=== PATIENT | female | born 1985 | race Caucasian/White ===

== ENCOUNTER 2022-07-03 17:51 | Emergency (ER) | payer OTHER, MEDICAID, SELFPAY ==
[2022-07-03 18:11] VITALS: BP 121/77; PULSE 82; RESP 18; TEMP 36.9; O2SAT 99; BMI 26.6
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
== END 2022-07-03 20:12 | disposition home or self-care (01) ==
LOC: ED 19:35
PROVIDERS: Emergency Provider Family Medicine; PCP Family Medicine
DX: M54.50 Low back pain, unspecified (principal); V43.02XA Car driver injured in collision with other type car in nontraffic accident, initial encounter
CPT/HCPCS: 99282; 99283; 99284

== ENCOUNTER 2023-02-18 09:17 | Emergency (ER) | payer MEDICAID, SELFPAY ==
[2023-02-18 09:33] VITALS: BP 122/72; PULSE 86; RESP 16; TEMP 36.4; O2SAT 98; BMI 26.4
--- NOTE | 2023-02-18 09:48 | ED_ITS ---
HPI - Abdominal Pain General Time Seen by Provider: 09:48 Date Seen: 02/18/23 Chief Complaint: Abdominal Pain Stated Complaint: pelvis pain 9weeks Time Seen by Provider: 02/18/23 09:48 Source: patient, RN notes reviewed and old records reviewed Mode of arrival: ambulatory Limitations: no limitations History of Present Illness HPI narrative: Patient is a very pleasant 37-year-old female at approximately 9 weeks based on an LMP of December 07 who comes to the emergency room for evaluation of pelvic pain. Patient notes that she started experiencing discomfort in which she describes as ovary pain over the weekend or the past 48 hours. She notes today she went to work at [employer] and had increased pain while she was vacuuming a large room and lifting the vacuum up stairs. In addition she had open a very heavy door and was worried about the increasing pain. She states now the pain is also in her groin area. She has not had any v omiting fever or chills. She denies dysuria. She has not had any unusual vaginal discharge or bleeding. He is worried about the health of her baby as she has had no complications with her previous 2 pregnancies. She notes that movement such as lifting her legs definitely increases her discomfort and resting seems to help. She has not taken any medication for pain at this time. I do speak to her about bacterial vaginosis and she said that she has had that in the past. She notes no unusual odor today and again denies any unusual vaginal discharge. Activity on Saturday prior to the onset of symptoms included 3-1/2-4 hours of walking during good Saturday services which reacted stations of the [place]. She states that she is usually quite active in this would not normally bother her. Related Data Home Medications Medication Instructions Recorded Confirmed levothyroxine 125 mcg capsule 125 mcg PO QDAY 05/10/22 05/10/22 Previous Rx's Medication Instructions Recorded cyclobenzaprine 10 mg tablet 5 - 10 mg PO Q12H #20 tabs 07/03/22 hydrocodone 5 mg-acetaminophen 325 1 tab PO Q6H PRN pain #15 tabs 07/03/22 mg tablet Allergies Allergy/AdvReac Type Severity Reaction Status Date / Time naproxen Allergy Severe hives, SOB Verified 06/07/22 12:33 Penicillins Allergy Intermediate Nausea Verified 06/07/22 12:33 clarithromycin Allergy Mild Rash Verified 06/07/22 12:33 metronidazole Allergy Mild Rash Verified 06/07/22 12:33 aspirin Allergy Unknown Verified 06/07/22 12:33 ibuprofen Allergy Unknown intolerance Verified 06/07/22 12:33 oxycodone-acetaminophen Allergy Intermediate Dizziness Uncoded 06/07/22 12:33 Review of Systems Status of ROS Reports: 10 or more systems reviewed and unremarkable except as noted in History and below Const Denies: fever, chills or fatigue ENMT Denies: throat pain, neck pain or difficulty swallowing Cardio Denies: chest pain, swelling of feet/ankles, lightheadedness or shortness of breath with exertion Resp Denies: shortness of breath or cough GI Reports: abdominal pain (Pelvic and groin); Denies: nausea, vomiting, diarrhea or difficulty swallowing Denies: painful urination, urinary frequency or urinary urgency Musculo Denies: back pain or neck pain Neuro Denies: headache Endo Denies: fatigue PFSH PFS Medical History Injury of left heel ?S99.922A - Unspecified injury of left foot, initial encounter (ICD-10) Social History Smoking Status: Unknown if ever smoked Do you use any of these nicotine containing products: None How often do you have a drink containing alcohol: monthly or less How often do you have six or more drinks on one occasion: Never AUDIT-C Alcohol total score: 1 Non-prescribed substance use: denies use service: No Exam Narrative: Exam Narrative: Patient is alert and oriented. Nontoxic in appearance. Clearly worried. External ears eyes nose clear no respiratory distress. Abdomen is soft. Tenderness noted in the lower pelvic area. No masses palpated. External genitalia within normal limits. No erythema. There is some whitish discharge that is not malodorous. Small collection taken. No cervical motion tenderness with bimanual exam. No masses are palpated. No lesions are noted. Const: Vital Signs, click to edit/add: Vital Signs - 24 hr 02/18/23 09:33 Temperature 97.6 F Pulse Rate [Left P ulse Oximeter] 86 Respiratory Rate 16 Blood Pressure [Le ft Upper Arm] 122/72 Pulse Oximetry 98 Oxygen Delivery Me thod Room Air Documenting provider has reviewed patient's vital signs: yes Course Course Hospital Course: At this time will obtain urinalysis as well as pelvic ultrasound. Prep pending Reevaluation(s) Reevaluation #1: Wet prep is negative. Did call patient and left this message on her phone as she had departed prior to these results being available. Ultrasound reassuring with no evidence of subchorionic hemorrhage or abnormality. Vital Signs Vital signs: Initial Vital Signs Temperature 97.6 F 02/18/23 09:33 Temperature Source Temporal Artery Scan 02/18/23 09:33 Pulse Rate 86 02/18/23 09:33 Pulse Rhythm Regular 02/18/23 09:33 Pulse Strength 3+ Normal 02/18/23 09:33 Respiratory Rate 16 02/18/23 09:33 Blood Pressure 122/72 02/18/23 09:33 Blood Pressure Mean 88 02/18/23 09:33 Blood Pressure Position Sitting 02/18/23 09:33 Pulse Oximetry 98 02/18/23 09:33 Oxygen Delivery Method Room Air 02/18/23 09:33 Vital Signs Temperature 97.6 F 02/18/23 09:33 Pulse Rate 86 02/18/23 09:33 Respiratory Rate 16 02/18/23 09:33 Blood Pressure 122/72 02/18/23 09:33 Pulse Oximetry 98 02/18/23 09:33 Oxygen Delivery Method Room Air 02/18/23 09:33 Temperature 97.6 F 02/18/23 09:33 Pulse Rate 86 02/18/23 09:33 Respiratory Rate 16 02/18/23 09:33 Blood Pressure 122/72 02/18/23 09:33 Pulse Oximetry 98 02/18/23 09:33 Oxygen Delivery Method Room Air 02/18/23 09:33 MDM - Abdominal Pain MDM Narrative Medical decision making narrative: 1. Pelvic pain-at this time ultrasound is reassuring with good heart tones and no evidence of subchorionic hemorrhage. No evidence of ovarian torsion. I believe that this discomfort likely stems from prolonged standing and walking on Saturday prior to the onset of symptoms. Patient is a little bit early for ligamental pain but certainly this could be part of her discomfort as well. He is nontoxic in appearance without a fever, urinary tract infection or worrisome exam. At this time recommend Tylenol as needed for discomfort. Will give her a note for 1 week off of work. She is to follow up with and establish with Dr. Tolentino from the [facility] for her OB care 1 week from today. Further review work restrictions can be given through primary MD. 2. Disposition-patient states she does feel better knowing that the baby is okay at this point. Recommend return to the ED for worsening or onset of new symptoms. She does agree. I did not feel the need for any blood work today given her vital signs, lack of fever, examination. Medical Records Attestation: I reviewed the patient's medical records. Lab Data Attestation: I reviewed the patient's lab results. Labs: Lab Results 02/18/23 02/18/23 Range/Units 10:19 14:40 Urine Color Yellow (Yellow) Urine Appearance Clear (Clear) Urine pH 6.5 (5.0-8.5) Ur Specific [place] 1.010 (1.000-1.030) Urine Protein Negative (Negative) Urine Glucose (UA) Negative (Negative) Urine Ketones Negative (Negative) Urine Blood Negative (Negative) Urine Nitrite Negative (Negative) Urine Bilirubin Negative (Negative) Urine Urobilinogen 0.2 (0.2-1.0) Ur Leukocyte Esterase Negative (Negative) Urine RBC 0-2 (0-2) Urine WBC 0-2 (0-5) Ur Squamous Epith Cells None (None-Few) Urine Bacteria None (None) Vaginal Trichomonas No Trichomonas Seen (None Seen) Vaginal Yeast No Yeast Seen (None Seen) Vaginal Clue Cells No Clue Cells Seen (None Seen) Imaging Data Pelvic ultrasound: Attestation: I have reviewed the pertinent imaging results. Radiologist's impression: here is a single living intrauterine . The crown rump length measurement is 3.4 centimeters which corresponds to 10 weeks and 4 days. The estimated date of delivery by ultrasound is 09/14/2023. The LMP is given as 12/07/2022 which corresponds to 10 weeks and 3 days with a clinically estimated date of delivery of 09/13/2023. The dates are concordant with one another A gestational sac is noted measuring 4.6 centimeters with smooth normal appearing margins. No subchorionic hemorrhage. A normal-appearing yolk sac is identified. The ovaries are normal in size. The right measures 3.3 x 2.6 x 2.5 centimeters and the left 3.0 x 1.7 x 1.4 centimeters. A corpus luteum cyst of is noted in the right ovary. No free fluid in the cul-de-sac. heart rate is 163 beats per minute which is normal Impression: Single live intrauterine at 10 weeks and 2 days with a normal heart rate of 163 beats per minute. No subchorionic hemorrhage. Unremarkable examination. Discharge Plan Discharge Clinical Impression: Pelvic pain Patient Disposition: Home, Self-Care Condition: Improved Additional Instructions: Suggest the use of Tylenol 500 mg tablets, 1-2 tablets every 6 hours as needed for pain. Rest. Follow-up with your primary doctor as scheduled next Saturday. In the meantime I have written work restrictions for now. Return to the emergency room for the onset of new or worsening symptoms. Prescriptions: No Action levothyroxine 125 mcg capsule 125 mcg PO QDAY hydrocodone-acetaminophen 5-325 mg tablet 1 tab PO Q6H PRN (Reason: pain) Qty: 15 0RF cyclobenzaprine 10 mg tablet 5 - 10 mg PO Q12H Qty: 20 0RF Follow Up/Referrals: Nataly Carrington MD [Primary Care Provider] - Stand Alone Forms: [employer] Info Instructions
--- NOTE | 2023-02-18 10:12 | CRLHL7_ITS ---
For Patients: As a result of the Century Cures Act, medical imaging exams and procedure reports are released immediately into your electronic medical record. You may view this report before your referring provider. If you have questions, please contact your health care provider. Indication: Pelvic and groin pain in the setting a first-trimester . Technique: Transvaginal examination of the pelvis was performed. The study was performed by grayscale and with Doppler. Comparison: None Findings: There is a single living intrauterine . The crown rump length measurement is 3.4 centimeters which corresponds to 10 weeks and 4 days. The estimated date of delivery by ultrasound is 09/14/2023. The LMP is given as 12/07/2022 which corresponds to 10 weeks and 3 days with a clinically estimated date of delivery of 09/13/2023. The dates are concordant with one another A gestational sac is noted measuring 4.6 centimeters with smooth normal appearing margins. No subchorionic hemorrhage. A normal-appearing yolk sac is identified. The ovaries are normal in size. The right measures 3.3 x 2.6 x 2.5 centimeters and the left 3.0 x 1.7 x 1.4 centimeters. A corpus luteum cyst of is noted in the right ovary. No free fluid in the cul-de-sac. heart rate is 163 beats per minute which is normal Impression: Single live intrauterine at 10 weeks and 2 days with a normal heart rate of 163 beats per minute. No subchorionic hemorrhage. Unremarkable examination. Dictated by Denny Ramirez MD @ 02/18/2023 1:02:41 PM (Electronically Signed)
[2023-02-18 10:34] LABS: Appearance Urine Clear (Clear); Bilirubin Urine Negative (Negative); Blood Urine Negative (Negative); Color Urine Yellow (Yellow); Glucose Urine Negative (Negative); Ketones Urine Negative (Negative); Leukocyte Esterase Urine Negative (Negative); Nitrite Urine Negative (Negative); Protein Urine Negative (Negative); Urobilinogen Urine 0.2 (0.2-1.0); pH Urine 6.5 (5.0-8.5)
[2023-02-18 10:41] LABS: RBC Urine 0-2 (0-2); WBC Urine 0-2 (0-5)
[2023-02-18 15:12] LABS: Clue Cells No Clue Cells Seen (None Seen); Trichomonas No Trichomonas Seen (None Seen); Yeast No Yeast Seen (None Seen)
== END 2023-02-18 15:26 | disposition home or self-care (01) ==
PROVIDERS: Emergency Provider Family Medicine; PCP Family Medicine
DX: R10.2 Pelvic and perineal pain (principal); Z3A.09 9 weeks gestation of pregnancy
CPT/HCPCS: 76817; 81001; 87210; 93976; 99284

== ENCOUNTER 2023-07-29 13:00 | Outpatient (RCR) | payer BC, SELFPAY | END 2023-10-23 13:40 | disposition home or self-care (01) | PROVIDERS: PCP Family Medicine; Visit Provider Family Medicine | DX: M54.42 Lumbago with sciatica, left side (principal); M54.16 Radiculopathy, lumbar region; M62.81 Muscle weakness (generalized); Z74.09 Other reduced mobility; Z51.89 Encounter for other specified aftercare | CPT/HCPCS: 97110; 97140; 97161; 97535 ==

== ENCOUNTER 2023-08-23 16:43 | Inpatient (IN) | payer BC, SELFPAY ==
[2023-08-23] VITALS (53 sets, daily range): BP systolic 106–162; BP diastolic 58–95; PULSE 74–118; RESP 18; TEMP 36.7–36.9; O2SAT 100; BMI 28.3
[2023-08-23] MEDS: LACTATED RINGERS 1000 ML 1,000 ML 999 ML IV ×2 (17:00→17:50)
[2023-08-23 17:01] LABS: Basophils Percent Auto 0.3 % (0.0-3.0); Eosinophils Percent Auto 0.4 % (0.0-7.0); Hematocrit 38.8 % (33.0-51.0); Hemoglobin* 13.2 gm/dL (12.0-16.0); Immature Granulocytes Pct Auto 0.9 %; Lymphocytes Percent Auto 21.8 % (20-44); Mean Corpuscular HGB Conc 34 gm/dL (32-36); Mean Corpuscular Hemoglobin 30 pg (26-34); Mean Corpuscular Volume 89 fL (80-100); Monocytes Percent Auto 7.1 % (0.0-11.0); Neutrophils Percent Auto 69.5 % (42.0-72.0); Platelet Count* 213 K/uL (140-440); RDW Coefficient of Variation % 14.3 % (11.5-15.5); Red Blood Count 4.35 m/uL (4.00-5.20); White Blood Count* 11.77 K/uL (4.50-11.00)
[2023-08-23 17:05] LABS: Slide Review Reflex No
--- NOTE | 2023-08-23 17:21 | PM.OBHPLI ---
OB - H&P: HPI Labor/Induction History of Present Illness Date Seen: 08/23/23 Chief Complaint: The patient is a 37 year old 5 para 1122 at 37 weeks gestation by LMP , who presents with painful regular contractions, starting at 1100, becoming stronger this afternoon. Chief complaint: Maternity : 5 Para: 2 Narrative: Kim De Leon is a 37 year old at 27 weeks by LMP who presents with painful regular contractions. This has been uncomplicated, however her first was an induction at 38 weeks for preeclampsia and resulted in a for non reassuring FHTs. She was planning on repeat csection for #2, but came in in labor with rapid dilation to 10 cm with successful . She desires TOLAC for this and consent has been signed. 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, cannot tolerate ASA Labs Blood type: O (+) positive Rubella: immune RPR/VDLR: nonreactive GBS status: negative HBsAG: negative Review of Systems Status of ROS: Reports: 6 or more systems reviewed and unremarkable except as noted in History and below Meds Home Medications and Allergies Home Medications Medication Instructions Recorded Confirmed Type levothyroxine 125 mcg capsule 125 mcg PO QDAY 05/10/22 08/23/23 History cholecalciferol (vitamin D3) 125 mcg PO 07/30/23 07/30/23 History mcg (5,000 unit) disintegrating tablet omeprazole 20 mg capsule,delayed 20 mg PO DAILY 07/30/23 08/23/23 History release Allergies Allergy/AdvReac Type Severity Reaction Status Date / Time ibuprofen Allergy Severe Only One Verified 07/30/23 14:23 Kidney naproxen Allergy Severe hives, SOB Verified 07/30/23 14:23 Penicillins Allergy Intermediate Nausea Verified 07/30/23 14:23 clarithromycin Allergy Mild Rash Verified 07/30/23 14:23 metronidazole Allergy Mild Rash Verified 07/30/23 14:23 aspirin AdvReac Severe Only One Verified 07/30/23 14:23 Kidney ketorolac [From Acular] AdvReac Severe Only One Verified 07/30/23 14:23 Kidney OB - H&P: Exam Physical Exam: Vital signs: Pulse BP 83 150/79 H 08/23/23 16:56 08/23/23 16:56 Constitutional: Constitutional: no acute distress Routine HEENT Exam: Head: Present atraumatic Eye: Present conjunctival injection and EOMI ENT: Present mucous membranes moist Detailed ENT Exam: Oropharynx: Present normal inspection Routine Neck Exam: Neck: Present full ROM Routine Respiratory Exam: Respiratory: Present CTA bilaterally Routine Cardiovascular Exam: Cardiovascular: RRR Detailed Labor and Delivery Exam: Patient Gravid: Yes Dilation (cm): 6 Contraction intensity: Strong/Firm Fetus (Single): Amniotic Membrane Status: intact Heart Rate Baseline: 140 Monitor Accelerations: Present Monitor Decelerations: None Routine Skin Exam: Present intact Routine Neurological Exam: Present alert, oriented X3 and CN II-XII intact OB - Results Labs Labs: Short CBC 08/23/23 Range/Units 16:50 WBC 11.77 H (4.50-11.00) K/uL Hgb 13.2 (12.0-16.0) gm/dL Hct 38.8 (33.0-51.0) % Plt Count 213 (140-440) K/uL OB - Problem Based A/P Additional Plan (1) Term : Status: Acute (2) History of : Status: Acute Plan Expectant management. OR and policewoman notified and are in house for TOLAC Epidural for pain management. Anticipate . Delivery/Labor/Induction Plan Plan: expectant management
[2023-08-23] MEDS: ROPIVACAINE 0.2% 100 ml 100 ML 12 MG EPIDURAL (17:36)
[2023-08-23] MEDS: LIDOCAINE 2% (PF) 5 ML VIAL EPIDURAL (17:36)
--- NOTE | 2023-08-23 17:54 | P.ANBPRC_ITS ---
[facility] Medical History History of vitamin D deficiency ?Z86.39 - Personal history of other endocrine, nutritional and metabolic disease (ICD-10) History of Helicobacter pylori infection (2017) ?Z86.19 - Personal history of other infectious and parasitic diseases (ICD- 10) Vaginal after (06/21/21) ?O34.219 - Maternal care for unspecified type scar from previous delivery (ICD-10) Premature delivery ?O60.10X0 - labor with delivery, unspecified trimester, not applicable or unspecified (ICD-10) Back pain (07/03/22) ?M54.9 - Dorsalgia, unspecified (ICD-10) History of severe pre-eclampsia (2018) ?Z87.59 - Personal history of other complications of , childbirth and the puerperium (ICD-10) Surgical History History of dehiscence of wound ?Z87.59 - Personal history of other complications of , childbirth and the puerperium (ICD-10) Status post primary low transverse section (08/24/19) ?Z98.891 - History of uterine scar from previous surgery (ICD-10) History of kidney donation (2015) ?Z90.5 - Acquired absence of kidney (ICD-10) Family History Father Alcohol dependence Coronary artery disease Myocardial infarction Cirrhosis Maternal Grandfather Diabetes Liver cancer Maternal Grandmother Diabetes Social History What is your current living situation?: I presently have a place to live Problems where you live: no known problems In the past 12 months, utilities in danger of being shut off: no In past 12 months, lack of transportation kept you from medical appts, meetings, work, or getting things needed for daily living: no In the past 12 mos, have been you worried that your food would run out before you had money to buy more?: never true In the past 12 mos, the food you bought just didn't last and you didn't have money to buy more?: never true Smoking Status: Never smoker Do you use any of these nicotine containing products: None How often do you have a drink containing alcohol: monthly or less How often do you have six or more drinks on one occasion: Never AUDIT-C Alcohol total score: 1 Non-prescribed substance use: denies use How often does anyone, including family, friends and others, physically hurt you : never How often does anyone, including family, friends and others, insult or talk down to you: never How often does anyone, including family, friends and others, threaten you with harm: never How often does anyone, including family, friends and others, scream or curse at you: never service: No Meds Home Medications and Allergies Home Medications Medication Instructions Recorded Confirmed Type levothyroxine 125 mcg capsule 125 mcg PO QDAY 05/10/22 08/23/23 History cholecalciferol (vitamin D3) 125 mcg PO 07/30/23 07/30/23 History mcg (5,000 unit) disintegrating tablet omeprazole 20 mg capsule,delayed 20 mg PO DAILY 07/30/23 08/23/23 History release Allergies Allergy/AdvReac Type Severity Reaction Status Date / Time ibuprofen Allergy Severe Only One Verified 07/30/23 14:23 Kidney naproxen Allergy Severe hives, SOB Verified 07/30/23 14:23 Penicillins Allergy Intermediate Nausea Verified 07/30/23 14:23 clarithromycin Allergy Mild Rash Verified 07/30/23 14:23 metronidazole Allergy Mild Rash Verified 07/30/23 14:23 aspirin AdvReac Severe Only One Verified 07/30/23 14:23 Kidney ketorolac [From Acular] AdvReac Severe Only One Verified 07/30/23 14:23 Kidney Results Labs Labs: Laboratory Results - last 24 hr 08/23/23 16:50 WBC 11.77 H RBC 4.35 Hgb 13.2 Hct 38.8 MCV 89 MCH 30 MCHC 34 RDW Coeff of Susi 14.3 Plt Count 213 Neut % (Auto) 69.5 Lymph % (Auto) 21.8 Moffat % (Auto) 7.1 Eos % (Auto) 0.4 Baso % (Auto) 0.3 Neut # (Auto) 8.20 H Lymph # (Auto) 2.60 Moffat # (Auto) 0.80 Eos # (Auto) 0.00 Baso # (Auto) 0.00 Abs Immat Gran (auto) 0.10 Imm/Tot Granulo (auto) 0.9 Vital Signs Vital Signs: Last Vital Signs Pulse 100 08/23/23 17:52 BP 140/75 H 08/23/23 17:52 Pulse Ox 100 08/23/23 17:31 Weight: 72.631 kg Height: 160.02 cm Anesthesia Procedures Epidural Insertion Patient Location: OB Start Time: 17:10 Stop Time: 18:10 Start Date: 08/23/23 Stop Date: 08/23/23 Reason for Block: procedure for pain Patient Position: sitting Performed By: Neelam Zaragoza Preanesthetic Checklist: IV checked, risks and benefits discussed, monitors and equipment checked, pre-op evaluation, timeout performed and anesthesia consent Prep: chlorhexidine gluconate Monitoring: blood pressure monitoring, continuous pulse oximetry and heart rate Approach: midline Vertebral Space: lumbar (1-5) Epidural Technique: EVELIN saline Needle Type: Tuohy needle Injection Technique: continuous catheter (continuous catheter) Needle gauge: 17 Needle Length (cm): 10 cm Needle Insertion Depth (cm): 7 Catheter Gauge: 19 Catheter Type: multi-orifice Catheter at skin depth (cm): 15 Test Dose Result: negative and lidocaine 1.5% with epinephrine 1 to 200,000
--- NOTE | 2023-08-23 19:02 | P.OBPN_ITS ---
Subjective Date Seen: 08/23/23 Narrative: iKm is a at 37 weeks in active labor. After placement of her epidural, she underwent AROM with copious clear fluid. Contractions are now 4-6 minutes with deep variable decelerations. Reviewed strip with education adviser denial resolution specialist and we will try an amnioinfusion to see if that improves the decels. Objective Vital Signs: Last Vital Signs Temp 98.4 F 08/23/23 16:56 Pulse 80 08/23/23 19:00 Resp 18 08/23/23 16:56 BP 123/66 08/23/23 19:00 Pulse Ox 100 08/23/23 17:31 Pelvic Exam Dilation (cm): 9 Effacement (%): 100 Station: -2 Contractions Monitor mode: Internal Contraction Frequency: 4-6 minutes Contraction pattern: Regular Contraction intensity: Strong/Firm Assessment Assessment: active labor Amniotic Membrane Status: SROM Status: Category ll Heart Rate Baseline: 140 Operator Helper Variability: Moderate (6-25) Monitor Accelerations: Present Monitor Decelerations: Variable Plan Plan: Amnioinfusion for deep variable decelerations. Continue expectant management, consider pitocin if contractions continue to be inadequate.
[2023-08-23] MEDS: OXYTOCIN 30 unit/500 ML in NS 30 UNIT/500 ML BAG 305 UNIT IVPB (20:49)
--- NOTE | 2023-08-23 21:18 | W.PM.VAGDEL1 ---
Procedure Procedure Done: Global Intrapartal Events: None Delivery augmentation: rupture of membranes Delivery monitor: external FHT, external uterine, internal FHT and internal uterine Route of delivery: Laceration description: None Anesthesia type: Epidural Disposition: floor Narrative: The patient is a 37 year-old G 5P 1122 admitted on 08/23/2023 at 37 Weeks, 0 Days gestation for active labor.? Cervical exam on admission was 6 cm/100 % effaced/-3 station with membranes intact in vertex presentation.? Contractions were every 3-4 minutes.? heart rate demonstrated baseline 145 bpm with moderate variability, + accelerations, - decelerations; a category 1 tracing.? AROM occurred at 1751 with clear fluid. ? Labor Analgesia:? epidural ? Pitocin:? no ? Labor onset:? 1612 ? Complete:? 2041 ? Pushing:? 2026 (with anterior lip due to recurrent, deep variable decelerations) ? heart tones during second stage were category 2. ? At 2048 a viable male delivered in vertex OA presentation over intact perineum via spontaneous vaginal delivery.? was placed on maternal abdomen.? Cord was clamped and cut after a 30-60 second delay.? Nose and mouth were bulb suctioned.? Infant weight pending.? 8 at 1 minute and 9 at 5 minutes.? Shoulder dystocia: no.? Nuchal cord: no. ? Placenta delivered spontaneously and complete at 2105 with a 3 vessel cord. ? Mother and were stable after delivery. ? Lacerations:? n/a. ? Blood loss: 75 mL. Blood loss measurement type: QBL ? Sponge and needles counts are correct. [place] Infant Gender: Male presentation: vertex Placental Delivery Description: Spontaneous Cord Description: 3 Vessels
[2023-08-23 22:53] LABS: Aspartate Amino Transferase* 38 U/L (12-35); Creatinine* 0.8 mg/dL (0.5-1.5); Est. Creatinine Clearance* 79.65; Estimated Glomerular Filt Rate 97 ml/min
[2023-08-23 22:54] LABS: Alanine Aminotransferase* 17 U/L (4-35); Blood Urea Nitrogen* 15 mg/dL (5-24)
[2023-08-23 23:00] LABS: Hematocrit 38.7 % (33.0-51.0); Mean Corpuscular HGB Conc 34 gm/dL (32-36); Mean Corpuscular Hemoglobin 30 pg (26-34); Mean Corpuscular Volume 90 fL (80-100); Platelet Count* 221 K/uL (140-440)
[2023-08-23 23:05] LABS: Slide Review Reflex No
[2023-08-23] MEDS: ACETAMINOPHEN 500 MG TABLET 1000 MG PO (23:14)
[2023-08-24 03:06] VITALS: BP 117/75; PULSE 103; RESP 16; TEMP 36.9
[2023-08-24 04:39] LABS: Hematocrit 34.4 % (33.0-51.0); Hemoglobin* 11.8 gm/dL (12.0-16.0); Mean Corpuscular HGB Conc 34 gm/dL (32-36); Mean Corpuscular Hemoglobin 31 pg (26-34); Mean Corpuscular Volume 90 fL (80-100); Platelet Count* 197 K/uL (140-440); Red Blood Count 3.83 m/uL (4.00-5.20)
[2023-08-24 04:41] LABS: Slide Review Reflex No
[2023-08-24 04:59] LABS: Est. Creatinine Clearance* 63.72; Estimated Glomerular Filt Rate 74 ml/min
[2023-08-24 05:00] LABS: Alanine Aminotransferase* 16 U/L (4-35); Aspartate Amino Transferase* 38 U/L (12-35); Blood Urea Nitrogen* 16 mg/dL (5-24)
[2023-08-24 06:56] LABS: Hemoglobin* 11.9 gm/dL (12.0-16.0)
[2023-08-24] MEDS: ACETAMINOPHEN 500 MG TABLET 1000 MG PO ×2 (08:17→21:02)
[2023-08-24 08:19] VITALS: BP 126/83; PULSE 92; RESP 16
[2023-08-24] MEDS: DOCUSATE SODIUM 100 MG CAPSULE PO (08:28)
--- NOTE | 2023-08-24 09:25 | PM.OBPNVD1 ---
OB - PN:Subj Subjective Date Seen: 08/24/23 Patient comments OB post-: no complaints Aladdin status: bottle feeding status: exclusively bottle feeding Narrative: 1 day s/p . Having some pain but managed with acetaminophen. Avoiding NSAIDs because of solitary kidney. Had an elevated BP overnight but labs ok and no other symptoms. Feeling fine now. Does feel a little uncomfortable due to swelling but that is improving as well. Bleeding is mild and improving. OB - PN: Obj Exam Physical Exam: Vital signs: Temp Pulse Resp BP Pulse Ox O2 Del Method 98.5 F 92 16 126/83 100 Room Air 08/24/23 03:06 08/24/23 08:19 08/24/23 08:19 08/24/23 08:19 08/23/23 21:36 08/24/23 08:19 Constitutional: Constitutional: no acute distress Routine Abdominal Exam: Abdominal: Present soft and tenderness (Mild tenderness over uterus. No percussion tenderness. No guarding. ); Absent organomegaly, rebound or rigid Fundus: Present firm Routine Extremities Exam: Extremities: Present pedal edema (1+ nonpitting); Absent calf tenderness OB - PN: Obj Data Labs Labs: Laboratory Results - last 24 hr 08/23/23 08/23/23 08/24/23 16:50 22:30 04:26 WBC 11.77 H 14.70 H 13.30 H RBC 4.35 4.30 3.83 L Hgb 13.2 13.0 11.8 L Hct 38.8 38.7 34.4 MCV 89 90 90 MCH 30 30 31 MCHC 34 34 34 RDW Coeff of Susi 14.3 Plt Count 213 221 197 Neut % (Auto) 69.5 Lymph % (Auto) 21.8 [place] % (Auto) 7.1 Eos % (Auto) 0.4 Baso % (Auto) 0.3 Neut # (Auto) 8.20 H Lymph # (Auto) 2.60 [place] # (Auto) 0.80 Eos # (Auto) 0.00 Baso # (Auto) 0.00 Abs Immat Gran (auto) 0.10 Imm/Tot Granulo (auto) 0.9 BUN 15 16 Creatinine 0.8 1.0 Estimated Creat Clear 79.65 63.72 Estimated GFR 97 74 AST 38 H 38 H ALT 17 16 Blood Type O Positive Antibody Screen NEGATIVE 08/24/23 06:45 WBC RBC Hgb 11.9 L Hct MCV MCH MCHC RDW Coeff of Susi Plt Count Neut % (Auto) Lymph % (Auto) [place] % (Auto) Eos % (Auto) Baso % (Auto) Neut # (Auto) Lymph # (Auto) [place] # (Auto) Eos # (Auto) Baso # (Auto) Abs Immat Gran (auto) Imm/Tot Granulo (auto) BUN Creatinine Estimated Creat Clear Estimated GFR AST ALT Blood Type Antibody Screen OB - PN: A/P Delivery Assessment and Plan (1) Term : Status: Acute (2) History of : Status: Acute Plan day: 1 Plan: routine care Comments: Monitor BP closely and start mag if severe pressures. Reevaluate if abdominal pain or bleeding is worsening.
--- NOTE | 2023-08-24 11:12 | CRLHL7_ITS ---
For Patients: As a result of the Century Cures Act, medical imaging exams and procedure reports are released immediately into your electronic medical record. You may view this report before your referring provider. If you have questions, please contact your health care provider. INDICATION: Abdominal pain, recent vaginal delivery TECHNIQUE: CT abdomen and pelvis acquired with 74 mL Isovue 370 IV contrast. COMPARISON: None. FINDINGS: Lower chest: Unremarkable. Liver: Unremarkable. Normal in size and attenuation. No masses. Gallbladder and bile ducts: Unremarkable. No stones or inflammation. No biliary dilatation. Pancreas: Unremarkable. No mass or inflammation. Spleen: Unremarkable. Normal in size. No masses. Adrenal glands: Unremarkable. No nodules. Kidneys: Left nephrectomy. Right kidney appears normal. GI tract: Unremarkable. Normal in caliber. No sign of mass or inflammation. Normal appendix. Vasculature: Unremarkable. Mesenteric arteries are patent. Lymph nodes: No lymphadenopathy. Omentum/Peritoneum/Abdominal Wall: No sign of mass or infiltration. No free air or significant free fluid. Tiny amount of air in the lumbar epidural space and right paraspinous musculature likely from recent epidural catheter Pelvis: Normal-appearing post gravid uterus. Bones: Unremarkable for age. IMPRESSION: Post gravid uterus. No acute findings. Left nephrectomy. Please note that all CT scans at this facility use dose modulation, iterative reconstruction, and/or weight-based dosing when appropriate to reduce radiation dose to as low as reasonably achievable. Dictated by Matthew Lacy MD @ 08/24/2023 1:31:55 PM (Electronically Signed)
[2023-08-24] MEDS: OXYCODONE 5 MG TABLET PO (11:21)
[2023-08-24 12:35] VITALS: BP 133/93; PULSE 81; RESP 16; TEMP 36.8; O2SAT 100
[2023-08-24 12:50] LABS: Basophils Percent Auto 0.2 % (0.0-3.0); Eosinophils Percent Auto 0.3 % (0.0-7.0); Hematocrit 39.7 % (33.0-51.0); Hemoglobin* 13.3 gm/dL (12.0-16.0); Immature Granulocytes Pct Auto 0.6 %; Lymphocytes Percent Auto 16.3 % (20-44); Mean Corpuscular HGB Conc 34 gm/dL (32-36); Mean Corpuscular Hemoglobin 30 pg (26-34); Mean Corpuscular Volume 91 fL (80-100); Monocytes Percent Auto 5.1 % (0.0-11.0); Neutrophils Percent Auto 77.5 % (42.0-72.0); Platelet Count* 227 K/uL (140-440); RDW Coefficient of Variation % 14.4 % (11.5-15.5); Red Blood Count 4.38 m/uL (4.00-5.20); White Blood Count* 14.79 K/uL (4.50-11.00)
[2023-08-24 12:52] LABS: Appearance Urine Clear (Clear); Bilirubin Urine Negative (Negative); Blood Urine 3+ (Negative); Glucose Urine Negative (Negative); Ketones Urine Negative (Negative); Leukocyte Esterase Urine 1+ (Negative); Nitrite Urine Negative (Negative); Protein Urine 2+ (Negative); Urobilinogen Urine 0.2 (0.2-1.0); pH Urine 5.5 (5.0-8.5)
[2023-08-24 12:53] LABS: Color Urine Pink (Yellow)
[2023-08-24 13:01] LABS: Slide Review Reflex No
[2023-08-24 13:11] LABS: Bacteria Urine Few; Squamous Epithelial Cell Urine Few (None-Few)
[2023-08-24 13:13] LABS: Albumin* 3.2 g/dL (3.3-5.0); Chloride* 106 mmol/L (96-114); Potassium* 3.9 mmol/L (3.6-5.1); Sodium* 135 mmol/L (135-149)
[2023-08-24 13:15] LABS: Creatinine* 0.8 mg/dL (0.5-1.5); Est. Creatinine Clearance* 79.65; Estimated Glomerular Filt Rate 97 ml/min
[2023-08-24 13:16] LABS: Alanine Aminotransferase* 18 U/L (4-35); Alkaline Phosphatase* 257 U/L (40-150); Anion Gap 7 mEq/L (7-15); Aspartate Amino Transferase* 38 U/L (12-35); Bilirubin Total* 0.5 mg/dL (0.1-1.5); Blood Urea Nitrogen* 16 mg/dL (5-24); Carbon Dioxide* 22 mmol/L (20-32); Glucose* 94 mg/dL (60-115); Total Protein* 6.3 g/dL (6.0-8.3)
[2023-08-24] MEDS: metroNIDAZOLE 500 MG/100 ML PIGGYBACK 100 MG IVPB ×2 (14:23→23:39)
[2023-08-24 16:20] VITALS: BP 113/71; PULSE 103; RESP 16; O2SAT 100
[2023-08-24 20:54] VITALS: BP 132/82; PULSE 96; RESP 16; TEMP 36.9; O2SAT 97
[2023-08-24 23:36] VITALS: BP 107/72; PULSE 92; RESP 16; O2SAT 96
[2023-08-25] MEDS: OXYCODONE 5 MG TABLET PO (00:02)
[2023-08-25 03:59] VITALS: BP 124/79; PULSE 83; RESP 18; TEMP 36.7; O2SAT 97
[2023-08-25] MEDS: ACETAMINOPHEN 500 MG TABLET 1000 MG PO (04:08)
[2023-08-25] MEDS: metroNIDAZOLE 500 MG/100 ML PIGGYBACK 100 MG IVPB (06:57)
[2023-08-25 08:03] VITALS: BP 110/65; PULSE 84; RESP 18; TEMP 36.8; O2SAT 97
--- NOTE | 2023-08-25 08:34 | P.OBPN_ITS ---
OB - PN:Subj Subjective Date Seen: 08/24/23 Narrative: Postdated note from 08/24: I was called back to evaluate the patient as she had worsening lower abdominal pain and nausea with 2 episodes of emesis. No fever. Urinating normally. Tylenol has not helped her pain. Overall feels she is doing worse than she was earlier in the morning. OB - PN: Obj Exam Physical Exam: Vital signs: Temp Pulse Resp BP Pulse Ox O2 Del Method 98.3 F 84 18 110/65 97 Room Air 08/25/23 08:03 08/25/23 08:03 08/25/23 08:03 08/25/23 08:03 08/25/23 08:03 08/25/23 08:03 Constitutional: Constitutional: no acute distress Routine Chest/Breast/Axilla Exam: Chest wall: Absent tenderness Routine Respiratory Exam: Respiratory: Present CTA bilaterally; Absent crackles Routine Cardiovascular Exam: Cardiovascular: Present RRR, S1 and S2; Absent murmur Routine Abdominal Exam: Fundus: Present firm Detailed Abdominal Exam: Palpation/Percussion: Absent ascites, psoas sign, Rovsing's sign or tenderness at [place]Bur[place]'s Point Palpation/Percussion: Absent hepatomegaly, Beasley's sign, splenomegaly, shifting dullness or fluid waves Comments: She is quite tender over the uterus. No percussion tenderness. No rebound or guarding. No other abdominal tenderness. Routine Extremities Exam: Extremities: Present pedal edema (1+ nonpitting); Absent calf tenderness OB - PN: Obj Data Labs Labs: Laboratory Results - last 24 hr 08/24/23 08/24/23 12:15 12:22 WBC 14.79 H RBC 4.38 Hgb 13.3 Hct 39.7 MCV 91 MCH 30 MCHC 34 RDW Coeff of Susi 14.4 Plt Count 227 Neut % (Auto) 77.5 H Lymph % (Auto) 16.3 L [place] % (Auto) 5.1 Eos % (Auto) 0.3 Baso % (Auto) 0.2 Neut # (Auto) 11.50 H Lymph # (Auto) 2.40 [place] # (Auto) 0.80 Eos # (Auto) 0.00 Baso # (Auto) 0.00 Abs Immat Gran (auto) 0.10 Imm/Tot Granulo (auto) 0.6 Sodium 135 Potassium 3.9 Chloride 106 Carbon Dioxide 22 Anion Gap 7 BUN 16 Creatinine 0.8 Estimated Creat Clear 79.65 Estimated GFR 97 Glucose 94 Calcium 9.0 Total Bilirubin 0.5 AST 38 H ALT 18 Alkaline Phosphatase 257 H Total Protein 6.3 Albumin 3.2 L Urine Color [place] A Urine Appearance Clear Urine pH 5.5 Ur Specific [place] 1.010 Urine Protein 2+ A Urine Glucose (UA) Negative Urine Ketones Negative Urine Blood 3+ A Urine Nitrite Negative Urine Bilirubin Negative Urine Urobilinogen 0.2 Ur Leukocyte Esterase 1+ A Urine RBC 10-25 A Urine WBC 10-25 A Ur Squamous Epith Cells Few Urine Bacteria Few A OB - PN: A/P Delivery Assessment and Plan (1) Term : Status: Acute (2) History of : Status: Acute (3) Endometritis: Status: Acute Plan Exam and history consistent with endometritis even though patient is afebrile. Recommend treatment with antibiotics and further evaluation. CT abdomen/pelvis ordered due to severity of pain and history of to rule out any hematoma or bleeding causing pain. Fortunately this did not show any abnormalities except expected changes after her delivery. Post epidural changes noted in back but not having discomfort in this area. Labs ok except elevated alkaline phosphatse likely related to and WBC count of 14 that could simply be related or could be related to infection. Either way, will plan treatment with IV antibiotics for 24 hours with gentamicin and metronidazole. Clindamycin not used as this is not available IV. History of rash to metronidazole but she believes this was mild and would be recommended. Monitor for any worsening.
--- NOTE | 2023-08-25 08:51 | PM.OBPNVD1 ---
OB - PN:Subj Subjective Date Seen: 08/25/23 Patient comments OB post-: no complaints and pain well controlled [place] infant status: bottle feeding status: exclusively bottle feeding Narrative: Doing much better today. Abdominal pain has resolved. Mild pain at her epidural site but that is improving. Had some low back and sciatic pain last night but that has resolved as well. History of similar pain through her . Responded well to a dose of oxycodone. No fevers. Eating well. Bleeding is mild. Has had a BM. OB - PN: Obj Exam Physical Exam: Vital signs: Temp Pulse Resp BP Pulse Ox O2 Del Method 98.3 F 84 18 110/65 97 Room Air 08/25/23 08:03 08/25/23 08:03 08/25/23 08:03 08/25/23 08:03 08/25/23 08:03 08/25/23 08:03 Constitutional: Constitutional: no acute distress Routine Chest/Breast/Axilla Exam: Chest wall: Absent tenderness Routine Respiratory Exam: Respiratory: Present CTA bilaterally; Absent crackles, rales, rhonchi or wheezes Routine Cardiovascular Exam: Cardiovascular: Present RRR, S1 and S2; Absent murmur Routine Abdominal Exam: Abdominal: Present normal bowel sounds and soft; Absent bruit, diminished bowel sounds, distended, guarding, mass, organomegaly, rebound, rigid or tenderness Fundus: Present firm OB - PN: Obj Data Labs Labs: Laboratory Results - last 24 hr 08/24/23 08/24/23 12:15 12:22 WBC 14.79 H RBC 4.38 Hgb 13.3 Hct 39.7 MCV 91 MCH 30 MCHC 34 RDW Coeff of Susi 14.4 Plt Count 227 Neut % (Auto) 77.5 H Lymph % (Auto) 16.3 L [place] % (Auto) 5.1 Eos % (Auto) 0.3 Baso % (Auto) 0.2 Neut # (Auto) 11.50 H Lymph # (Auto) 2.40 [place] # (Auto) 0.80 Eos # (Auto) 0.00 Baso # (Auto) 0.00 Abs Immat Gran (auto) 0.10 Imm/Tot Granulo (auto) 0.6 Sodium 135 Potassium 3.9 Chloride 106 Carbon Dioxide 22 Anion Gap 7 BUN 16 Creatinine 0.8 Estimated Creat Clear 79.65 Estimated GFR 97 Glucose 94 Calcium 9.0 Total Bilirubin 0.5 AST 38 H ALT 18 Alkaline Phosphatase 257 H Total Protein 6.3 Albumin 3.2 L Urine Color [place] A Urine Appearance Clear Urine pH 5.5 Ur Specific [place] 1.010 Urine Protein 2+ A Urine Glucose (UA) Negative Urine Ketones Negative Urine Blood 3+ A Urine Nitrite Negative Urine Bilirubin Negative Urine Urobilinogen 0.2 Ur Leukocyte Esterase 1+ A Urine RBC 10-25 A Urine WBC 10-25 A Ur Squamous Epith Cells Few Urine Bacteria Few A OB - PN: A/P Delivery Assessment and Plan (1) Term : Status: Acute (2) History of : Status: Acute (3) Endometritis: Status: Acute Assessment and Plan: Will d/c antibiotics. Monitor for recurrence of abdominal pain and reassess as needed. Discussed warning signs with patient. Plan Plan: routine care and discharge home Comments: Follow up at 6 weeks for exam. Sooner if any problems in the meantime.
== END 2023-08-25 13:01 | disposition home or self-care (01) | DRG 560 ==
LOC: OB OUT 08-26 13:16
PROVIDERS: Surgery; Admitting Provider Family Medicine; PCP Family Medicine; Visit Provider Family Medicine
DX: O34.211 Maternal care for low transverse scar from previous cesarean delivery (principal); O86.12 Endometritis following delivery; Z3A.37 37 weeks gestation of pregnancy; Z37.0 Single live birth
CPT/HCPCS: 01967; 36415; 74177; 80053; 81001; 82565; 84450; 84460; 84520; 85018; 85025; 85027; 86850; 86900; 86901; 87040; 87086; 99213; A9270; J1580; J2795; J7120; Q9967; S0030

== ENCOUNTER 2025-04-01 18:03 | Emergency (ER) | payer BC, SELFPAY ==
--- OUTSIDE RECORDS SUMMARY | 2025-04-01 18:05 | XMS_ITS | Clinical Summary ---
Author Organization [facility] Address [address] [place] [address] Care Team Providers Care Legal Support Manager Name Role Phone Nataly Carrington MD Primary Care Prov ider RandaEleanor MD Unavailable [phone] Allergies Active Allergy Reactions Criticality Noted Date Comments Aspirin Intolerance-Can't Take 08/20/2019 1 kidney Clarithromycin Rash Medium 06/18/2017 Ibuprofen Intolerance-Can't Take 08/20/2019 1 kidney Metronidazole Rash Low 06/18/2017 Urticaria from metronidazole vs clarithromycin. Naproxen Hives,Shortness Of Breath,Tongue Swelling High 11/18/2012 Penicillins Nausea And Vomiting 10/15/2008 Oxycodone-Acetaminophen Itching,Dizzines s, Vomiting 05/26/2014 Medications vit 28/iron fum/folic (multivitamin folic acid 1 mg) Take 1 Tablet by mouth once daily. 0 3 Active cholecalcifero l (VITAMIN D3) 5,000 unit capsuleIndicat ions:Vitamin D deficiency TAKE ONE CAPSULE (5,000 UNITS) BY MOUTH ONCE DAILY 90 Capsule 1 4 Active durable medical equipment (DME)Indicatio ns:Patellar tendinitis of left knee Infrapatellar band 5 Active levothyroxine 125 mcg tabletIndicati ons:Hypothyroi dism due to medication Take 1 Tablet (125 mcg) by mouth before breakfast. 60 Tablet 5 Active Active Problems Problem Noted Date Diagnosed Date Finger pain, left 01/15/2025 Pap smear for cervical cancer screening 10/16/20 Overview (10/16/2023): HPV per problem list. No dates/records found. 09/2023 NIL/HPV negative. Plan: Pap/HPV due 09/2028. 03/13/2023 Overview (08/06/2023): Estimated Date of Delivery: 09/13/23 Patient's last menstrual period was 12/07/2022. GBS- No results found for: OBVAGRECGBS Last Tdap- 06/26/23 Last Flu vaccine- 2014 Glucose (GTT) result- PASS GLUCOSE,GESTATIONAL Date Value Ref Range Status 06/26/2023 92 70 - 139 mg/dL Final Recent Labs 02/25/23 1619 02/25/23 1615 HGB -- 12.4 ABORH -- O Rh Positive RCBANTIBODY -- Negative TREPONEPALLI -- Negative RUBELLAIGG -- 16.20 Positive HBSAG -- Negative [id number] -- Non Reactive CHLAMYDIAPRB Negative -- NGONORRPROBE Negative -- Allergies Allergen Reactions Naproxen Hives, Shortness Of Breath and Tongue Swelling Clarithromycin Rash Asprin Ec Low Dose [Aspirin] Intolerance-Can't Take 1 kidney Ibuprofen Intolerance-Can't Take 1 kidney Penicillins Nausea And Vomiting Percocet [Oxycodone-Acetaminophen] Itching, Dizziness and Vomiting Metronidazole Rash Urticaria from metronidazole vs clarithromycin. OB History Para Term AB Living 5 2 1 1 2 1 SAB IAB Ectopic Multiple Live Births 0 2 0 0 1 # Outcome Date GA Lbr Yimi/2nd Weight Sex Delivery Anes PTL Lv 5 Current 4 06/21/21 35w4d M 3 Term 08/21/19 38w1d F EVARISTO 2 IAB 2006 1 IAB 2006 ELECTIVE AB FD Past Medical History: . Date H. pylori infection 05/31/2017 EGD 05/2017 H. Pylori gastritis HPV (human papillomavirus) Hypothyroidism 2007 Vitamin D deficiency 2008 Past Surgical History: . Laterality Date COLONOSCOPY N/A Colonoscopy 08/2017 normal repeat at age 50 ESOPHAGOGASTRODUODENOSCOPY EGD 05/2017 H. Pylori gastritis EXPLORATION OF PFANNENSTIEL INCISION 09/01/2019 [facility] NEPHRECTOMY LIVING DONOR 04/2016 donated left kidney to a friend No data on file. 5 Problems (from 02/25/23 to present) Problem Noted Resolved 03/13/2023 by Lisa Valles, RN No Lisa Valles RN ....03/13/2023 4:34 PM Chronic pain of both wrists 01/21/2018 Ganglion cyst of both wrists 01/21/2018 Abdominal pain, LUQ (left upper quadrant) 2016 Overview (08/21/2017): Colonoscopy 08/2017 normal repeat at age 50 Chalazion right upper eyelid 02/28/2016 Fatty liver 02/09/2016 Overweight (BMI 25.0-29.9) 02/09/2016 Asymptomatic varicose veins 05/11/2011 Vitamin D deficiency 05/11/2011 Unspecified hypothyroidism 11/18/2008 S/P excision of ganglion cyst Ganglion cyst of dorsum of left wrist Resolved Problems Problem Noted Date Diagnosed Date Resolved Date Encounter for supervision of other normal , second trimester 02/24/2021 06/17/2022 01/02/2021 06/17/2022 Overview (04/25/2021): Estimated Date of Delivery: None noted. Patient's last menstrual period was 10/15/2020 (exact date). Last Tdap- 04/25/2021 Last Flu vaccine- 10/26/2015 Glucose (GTT) result- Component Latest Ref Rng & Units 04/25/2021 HEMOGLOBIN 12.0 - 16.0 g/dL 11.7 (L) MCV 80 - 100 fL 91 GLUCOSE,GESTATIONAL 65 - 139 mg/dL 100 20 week US: FINDINGS: Sonographic imaging demonstrates a single living intrauterine gestation. Fetus demonstrates a regular cardiac rate of 143 beats per minute. Fetus has a breech position. The placenta lies anterior without evidence of placenta previa. Amniotic fluid volume appears normal. Single deepest vertical pocket: 5.3 cm. The cervix is closed and measures 4.3 cm in length. The composite ultrasound gestational age is calculated at 21 weeks 5 days with an estimated sonographic due date of 07/22/2021. Allergies Allergen Reactions Naproxen Hives, Shortness Of Breath and Tongue Swelling Clarithromycin Rash Asprin Ec Low Dose [Aspirin] Intolerance-Can't Take 1 kidney Ibuprofen Intolerance-Can't Take 1 kidney Penicillins Nausea And Vomiting Percocet [Oxycodone-Acetaminophen] Itching, Dizziness and Vomiting Metronidazole Rash Urticaria from metronidazole vs clarithromycin. OB History Para Term AB Living 3 1 1 0 1 1 SAB TAB Ectopic Multiple Live Births 0 1 0 0 1 # Outcome Date GA Lbr Yimi/2nd Weight Sex Delivery Anes PTL Lv 3 Current 2 Term 08/21/19 38w1d F EVARISTO 1 TAB 2001 ELECTIVE AB FD Create lab flowsheet for OB labs- Component Latest Ref Rng & Units 12/29/2020 12/29/2020 12/29/2020 3:25 PM 3:56 PM 3:56 PM CHLAMYDIA PROBE Negative N GONORRHOEAE PROBE Negative HEMOGLOBIN 12.0 - 16.0 g/dL 12.2 MCV 80 - 100 fL 89 RUBELLA IGG ANTIBODY Positive ANTIBODY SCREEN Negative Negative SPECIMEN EXPIRATION DATE/TIME 01/01/21 23:59 TSH 0.35 - 4.94 uIU/mL 1.44 HIV-1/HIV-2 ANTIBODY Non-Reactive Non-Reactive HBSAG Nonreactive Nonreactive TREPONEMA PALLIDUM Negative Negative Component Latest Ref Rng & Units 12/29/2020 3:56 PM CHLAMYDIA PROBE N GONORRHOEAE PROBE HEMOGLOBIN 12.0 - 16.0 g/dL MCV 80 - 100 fL RUBELLA IGG ANTIBODY 16.20 ANTIBODY SCREEN Negative SPECIMEN EXPIRATION DATE/TIME TSH 0.35 - 4.94 uIU/mL HIV-1/HIV-2 ANTIBODY Non-Reactive HBSAG Nonreactive TREPONEMA PALLIDUM Negative Past Medical History: . Date H. pylori infection 05/31/2017 EGD 05/2017 H. Pylori gastritis HPV (human papillomavirus) Hypothyroidism 2008 Vitamin D deficiency 2009 Past Surgical History: . Laterality Date COLONOSCOPY N/A Colonoscopy 08/2017 normal repeat at age 50 ESOPHAGOGASTRODUODENOSCOPY EGD 05/2017 H. Pylori gastritis EXPLORATION OF PFANNENSTIEL INCISION 09/01/2019 [facility] NEPHRECTOMY LIVING DONOR 04/2016 donated left kidney to a friend No data on file. OB Problems (from 12/29/20 to present) No problems associated with this episode. Dena Valdes RN.....01/02/2021 1:45 PM 16 weeks gestation of 03/19/2019 03/19/2019 Encounter for supervision of normal , antepartum 02/12/2019 01/02/2021 Overview (08/21/2019): Component Latest Ref Rng & Units 08/10/2019 Culture No Group B Streptococcus isolated. Patient had elective AB first age 14. Please do not discuss unless medically necessary. Does not want Epidural offered to her during labor Estimated Date of Delivery: 09/03/19 Patient's last menstrual period was 11/27/2018. Last Tdap- 06/29/2019 Last Flu vaccine- 10/26/2015 Glucose (GTT) result- Component Latest Ref Rng & Units 05/25/2019 HEMOGLOBIN 12.0 - 16.0 g/dL 11.2 (L) MCV 80 - 100 fL 90 GLUCOSE,GESTATIONAL 65 - 139 mg/dL 135 TREPONEMA PALLIDUM Negative Negative 20 week US: IMPRESSION: 1.Transverse presentation. 2.No intrinsic abnormalities noted on anatomic survey. 3.Composite ultrasound age 19 weeks 5 days with CHILANGO of 09/04/2019 with an earlier established CHILANGO of 09/03/2019. Allergies Allergen Reactions Naproxen Hives, Shortness Of Breath and Tongue Swelling Clarithromycin Rash Penicillins Nausea And Vomiting Percocet [Oxycodone-Acetaminophen] Itching, Dizziness and Vomiting Metronidazole Rash Urticaria from metronidazole vs clarithromycin. OB History Para Term AB Living 2 0 0 0 1 0 SAB TAB Ectopic Multiple Live Births 0 1 0 0 0 # Outcome Date GA Lbr Yimi/2nd Weight Sex Delivery Anes PTL Lv 2 Current 1 TAB 2001 ELECTIVE AB FD Create lab flowsheet for OB labs- Component Latest Ref Rng & Units 01/30/2019 01/30/2019 01/30/2019 3:15 PM 3:15 PM 3:15 PM ANTIBODY SCREEN Negative Negative SPECIMEN EXPIRATION DATE/TIME 02/02/19 23:59 HEMOGLOBIN 12.0 - 16.0 g/dL 12.8 MCV 80 - 100 fL 90 RUBELLA IGG ANTIBODY Positive 15.90 HEMOGLOBIN A1C SCREENING <6.4 % 5.3 ABORH O Rh Positive HBSAG Nonreactive Nonreactive HEPATITIS C ANTIBODY Non-Reactive Non-Reactive HIV-1/HIV-2 ANTIBODY Non-Reactive Non-Reactive TREPONEMA PALLIDUM Negative Negative Past Medical History: Diagnosis Date H. pylori infection 05/31/2017 EGD 05/2017 H. Pylori gastritis HPV (human papillomavirus) Hypothyroidism 2007 Vitamin D deficiency 2008 Past Surgical History: Procedure Laterality Date COLONOSCOPY N/A Colonoscopy 08/2017 normal repeat at age 50 ESOPHAGOGASTRODUODENOSCOPY EGD 05/2017 H. Pylori gastritis NEPHRECTOMY LIVING DONOR 04/2016 donated left kidney to a friend No data on file. Problems (from 01/30/19 to present) No problems associated with this episode. EMILIE Venegas.....02/13/2019 8:11 AM H. pylori infection 05/31/2017 07/25/20 17 Overview (07/25/2017): EGD 05/2017 H. Pylori gastritis 07/2017-negative H. pylori stool test Preventative health care 05/11/2011 Routine gynecological examination 05/11/2011 02/09/2016 Screening breast examination 05/11/2011 02/09/2016 Reactive depression (situational) 05/10/2011 05/11/2011 Encounters Date Type Department Care Team Description 04/01/2025 Nurse Triage [facility] [address] [place] [address] Nataly Carrington MD Headache (Worst headache in my life.) 03/22/2025 9:45 AM CDT Office Visit [facility] [address] [facility] [address] [place] [address] Joleen Nunez MD Follow Up (F/U left knee pain) 03/22/2025 Travel 03/18/2025 Telephone [facility] [address] [place] [phone] Joleen Nunez MD Questions 02/22/2025 Refill [facility] [address] [place] [address] Citlali Mclean DO Refill Request (Levothyroxine) 01/29/2025 10:00 AM CDT Office Visit [facility] [address] [place] [address] Joleen Nunez MD Knee Pain/problem (Chronic left knee pain) 01/29/2025 Travel 01/21/2025 9:05 AM CDT Ancillary Procedure [facility] [address] [place] [address] 01/21/2025 9:00 AM CDT Office Visit [facility] [address] [place] [address] Jim Frazier PA Consult (Left Knee) 01/21/2025 Telephone [facility] [address] [facility] [address] [place] [address] Joleen Nunez MD 01/21/2025 Travel 01/20/2025 8:30 AM CDT Telemedicine [facility] [address] [place] [address] Brandon Hart MD Sleep Follow-up; Telehealth (Virtual visit, no vitals taken.) 01/19/2025 Travel 01/15/2025 12:00 PM DEVULCANIZER LOADER Office Visit [facility] [address] [place] [address] Jaquan Kenney MD Consult (Left Index Finger) 01/15/2025 Travel from Last 3 Months Immunizations Immunization Administration Dates Next Due COVID-19 VACCINE SPIKEVAX (M ODERNA 50MCG/0.5ML) 12YO+ PFS 11/26/2024,10/07/2023 COVID-19 vaccine (Pfizer-Bio NTech 30mcg/0.3mL) 12YO+ BIVALENT PF, MDV 10/19/2022 COVID-19 vaccine (Pfizer-Bio NTech 30mcg/0.3mL) PF, MDV 06/12/2021,05/23/2021 Hepatitis B (Adult) 11/30/2024 Hepatitis B (Peds) 07/08/2003 Hepatitis B, Unspecified 07/08/2003 INFLUENZA, IIV3 PF (AGE >= 6 MO) 11/26/2024 Inactivated Polio Vaccine 11/30/2024 Influenza Virus, Unspecified 12/14/2013, 09/22/2012,11/12/2011,2009 Influenza, IIV3 (Age >=3 years) 12/14/19 14,09/22/2012,11/12/2011,2009 Influenza, IIV4 08/09/2023,10/26/2015,08/09/2014 MMR 11/30/2024 Tdap 06/26/2023,,06/29/2019,2010 Family History Medical History Relation Name Comments Good Health Brother 1 Good Health Brother 2 Alcohol/Drug Father Heart Disease Father OR complicatio n for cirrosis Diabetes Maternal Grandfather Liver cancer Maternal Grandfather Diabetes Maternal Grandmother Good Health Mother Good Health Sister 1 Good Health Sister 2 Good Health Sister 3 Twin Premature Sister 4 Twin Relation Name Status Comments Brother 1 Alive Brother 2 Alive Father 36/HEART ATTACK /LIVER CIRROHSIS/ALCOHOLIC Maternal Grandfather Maternal Grandmother Mother Alive Paternal Grandfather Paternal Grandmother Sister 1 Alive Sister 2 Alive Sister 3 Alive Sister 4 Social History Tobacco Use Types Packs/Day Years Used Date Smoking Tobacco: Never Smokeless Tobacco: Never Tobacco Cessation:Counseling Given: Yes Alcohol Use Standard Drinks/Week Comments Not Currently 0 (1 standard drink = 0.6 oz pur e alcohol) PHQ-2 Answer Date Recorded PHQ-2 TOTAL SCORE 0 07/31/2021 Social Connections Answer Date Recorded Frequency of Communication with Friends and Fami ly 0 02/25/2023 Financial Resource Strain Answer Date R ecorded Difficulty of Paying Living Expenses 3 02/25/2023 Difficulty of Paying Living Expenses Not on file 02/25/2023 Food Insecurity Answer Date Recorded Worried About Running Out of Food in the Last Ye ar 1 02/25/2023 Transportation Needs Answer Date Record ed Lack of Transportation (Medical) 1 02/25/2023 Housing Stability Answer Date Recorded Unable to Pay for Housing in the Last Year 1 02/25/2023 Comments No Sex and Gender Information Value Date Recorded Sex Assigned at Not on file Legal Sex Female 5:41 AM DEVULCANIZER LOADER Gender Identity Not on file Sexual Orientation Not on file Occupation Industry Job Start Date Job End Date [employer] Not on file Not on file Not on file Obstetrics History Para Term AB IAB SAB Ectopic Multiple Livin g Live Births 5 3 2 1 2 2 0 0 0 3 3 Date Outcome GA Total Labor Labor/2nd/3rd Weight Sex Type Anes PTL Evaristo A1 A5 Name Clin 2006 IAB ELECTI VE AB Demis e 2006 IAB 2018 Term 38w 1d F C-Sect ion Livin g 2020 35w 4d M Livin g 2022 Term 37w 0d M N Livin g 8 9 Ge Herrera MD Complications:None Delivery Location:Hospital ( [facility]) Last Filed Vital Signs Vital Sign Reading Time Taken Comments Blood Pressure 120/70 09/29/2024 9:17 AM DEVULCANIZER LOADER Pulse 80 09/29/2024 9:17 AM DEVULCANIZER LOADER Temperature 37.4 C (99.4 F) 06/13/2022 2:28 PM CDT Respiratory Rate 16 07/31/2021 7:32 AM CDT Oxygen Saturation 96% 10/18/2023 11:41 AM DEVULCANIZER LOADER Inhaled Oxygen Concentration - - Weight 66.2 kg (146 lb) 09/29/2024 9:17 AM DEVULCANIZER LOADER Height 153.7 cm (5' 0.5) 09/29/2024 9:17 AM DEVULCANIZER LOADER Body Mass Index 28.04 09/29/2024 9:17 AM DEVULCANIZER LOADER Plan of Treatment Upcoming Encounters Date Type Department Care Team (Late st Contact Info) Description 04/13/2025 2:55 PM CDT Office Visit [facility] [address] [place] [address] Nataly Carrington MD [address] [place] [address] 04/29/2025 9:30 AM CDT Office Visit [facility] [address] [facility] [address] [place], [place] [phone] [place] [address] [place], [place] [phone] Scheduled Procedures Name Priority Associated Diagnoses Date/Ti me SURGICAL PROCEDURE (TYPE PRO CEDURE DESCRIPTION BELOW) Discoid meniscus of left knee Health Maintenance Due Date Last Done Comments Depression screening for age 12+ 1997 Hepatitis B series for 19+ (3 of 3 - 3-dose series) 01/25/2025 11/30/2024, 07/08/2003, 07/08/2003 BMI (ht and wt on same day) for age 18+ 09/29/2025 09/29/2024, 10/07/2023, 02/25/2023, Additional history exists Pap test for age 21-65 10/07/2028 , 10/07/2023, 12/11/2018, Additional history exists Tetanus booster 06/26/2033 06/26/2023, 04/11, 06/29/2019, Additional history exists Hepatitis C screening for age 18-79 Completed 01/30/2019 HIV for age 15-65 Completed 02/25/2023, , 01/30/2019 Tdap Completed 06/26/2023, 04/11, 06/29/2019, Additional history exists COVID-19 vaccine series Completed 11/26/19, 10/07/2023, 10/19/2022, Additional history exists Influenza Vaccine Completed 11/26/2024, , 10/26/2015, Additional history exists Pneumococcal series for age 6-49 Aged Out No longer eligible based on patient's age to complete this topic Procedures Procedure Name Priority Date/Time Associated Diagnosis Comments XR KNEE 1 VIEW LEFT Routine 01/21/2025 9 :04 AM CDT Left knee pain, unspecified chronicity HPV HIGH RISK Routine 10/07/2023 2:50 PM DEVULCANIZER LOADER Cervical cancer screening LC HIV-1/O/2, 4TH GENERATION Routine 02/25/2023 4:15 PM CDT Encounter for supervision of other normal in first trimester (HC) ANTI HCV Routine 01/30/2019 3:15 PM CDT Encounter for supervision of normal first in first trimester (HC) from Last 3 Months or Most Recently Relevant to Health Maintenance Results * XR KNEE 1 VIEW LEFT (01/21/2025 9:04 AM CDT) Anatomical Region Laterality Modality KNEE L Computed Radiogr aphy 01/21/2025 9:19 AM CDT Narrative 01/21/2025 9:19 AM CDT For Patients: As a result of the Cures Act, medical imaging exams and procedure reports are released immediately into your electronic medical record. You may view this report before your referring provider. If you have questions, please contact your health care provider. INDICATION: Chronic left knee pain. TECHNIQUE: Single Shah view of the left knee. COMPARISON: Eleven NG in 2023. FINDINGS: Mild medial compartment narrowing. Otherwise negative. No arthropathy or subarticular lytic bone lesions Dictated by Tigre Morrison MD @ 01/21/2025 9:19:14 AM (Electronically Signed) Procedure Note Kirk Morrison MD - 01/21/2025 For Patients: As a result of the Cures Act, medical imagingexams and procedure reports are released immediately into your electronicmedical record. You may view this report before your referring provider.If you have questions, please contact your health care provider. INDICATION: Chronic left knee pain. TECHNIQUE: Single Shah view of the left knee. COMPARISON: Eleven NG in 2023. FINDINGS: Mild medial compartment narrowing. Otherwise negative. No arthropathy orsubarticular lytic bone lesions Dictated by Tigre Morrison MD @ 01/21/2025 9:19:14 AM (Electronically Signed) [facility] Final Result * HPV HIGH RISK (10/07/2023 2:50 PM DEVULCANIZER LOADER) TYPE 16 Negative Negative 10/12/2023 7:31 AM DEVULCANIZER LOADER [facility] TYPE 18 Negative Negative 10/12/2023 7:31 AM DEVULCANIZER LOADER [facility] [facility] OTHER HIGH RISK TYPES Negative Negative 10/12/2023 7:31 AM DEVULCANIZER LOADER [facility] Other (Cervical) Non-Blood / Unknown 10/07/2023 2:50 PM DEVULCANIZER LOADER 10/08/2023 10:12 AM DEVULCANIZER LOADER Narrative [facility] - 10/12/2023 7:31 AM DEVULCANIZER LOADER HPV types 16, 18, 31, 33, 35, 39, 45, 51, 52, 56, 58, 59, 66 and 68 DNA were undetectable or below the pre-set threshold. Methodology: Chela Davi 4800 HPV Test Eleanor Tolentino MD MICROBIOLOGY Final R esult [facility] [address] [place] [address], [place] * LC HIV-1/O/2, 4TH GENERATION (02/25/2023 4:15 PM CDT) Pathologist [facility] HIV Scr 4th Gen Non Reactive Non Reactive 02/28/2023 12:08 PM CDT [facility] ([facility]) Comment: HIV Negative HIV-1/HIV-2 antibodies and HIV-1 p24 antigen were NOT detected. There is no laboratory evidence of HIV infection. Blood BLOOD SPECIMEN / Unknown Venipuncture / Unknown 02/25/2023 4:15 PM CDT 02/25/2023 4:[address] [facility] FOR [facility]IC TEST[facility] ([facility]) - 02/28/2023 12:08 PM CDT Performed at: [address] [place] [id number] Stack Clerk: Edgar Begum MD, Phone: [phone] Eleanor Tolentino MD LABORATORY Final R esult [facility] ([facility]) [address] [place] [id number], * ANTI HCV (01/30/2019 3:15 PM CDT) Pathologist [facility] HEPATITIS C ANTIBODY Non-React lucia Non-React lucia 01/30/2019 7:34 PM CDT [facility] Comment:Antibodies to HCV no t detected; does not exclude the possibility of exposure to HCV. Blood BLOOD SPECIMEN / Unknown Venipuncture / Unknown 01/30/2019 3:15 PM CDT 01/30/2019 3:15 PM CDT us Rosa [facility] Final R esult [facility] [address] [place] [address], from Last 3 Months or Most Recently Relevant to Health Maintenance Insurance [facility] ATTN: SECOND [place] [address] [facility] Advance Directives * Full Code (Latest Code Status on File) Date Activated Date Inactivated Comments 07/21/2018 2:45 PM 07/21/2018 8:17 PM Question Answer Comments Code Status Discussion: Discussed * Full Code Date Activated Date Inactivated Comments 07/21/2018 10:32 AM 07/21/2018 2:45 PM Question Answer Comments Code Status Discussion: Discussed Care Teams Legal Support Manager Relationship Specialty Start Date End Date Nataly Carrington MD [address] [place] [address] PCP - General Family Practice 07/02/19 Eleanor Tolentino MD [address] [place] [place] [address] Family Practice 03/08/23
[2025-04-01 18:26] VITALS: BP 118/79; PULSE 74; RESP 16; TEMP 37.3; O2SAT 97; BMI 26.1
--- NOTE | 2025-04-01 18:50 | CRLHL7_ITS ---
For Patients: As a result of the Cures Act, medical imaging exams and procedure reports are released immediately into your electronic medical record. You may view this report before your referring provider. If you have questions, please contact your health care provider. INDICATION: Headaches. COMPARISON: None. TECHNIQUE: Noncontrast CT head. FINDINGS: Normal brain parenchymal morphology. No acute intracranial hemorrhage, acute infarct, focal edema, mass effect, or fracture. No midline shift. No abnormal ventricular dilatation. Normal calvarium and skull base. Visualized paranasal sinuses mastoid air cells are clear. Normal orbits bilaterally. IMPRESSION: 1. No acute intracranial abnormality. 2. Normal brain parenchymal morphology Please note that all CT scans at this facility use dose modulation, iterative reconstruction, and/or weight-based dosing when appropriate to reduce radiation dose to as low as reasonably achievable. Dictated by Akin Boyce MD @ 04/01/2025 7:25:36 PM (Electronically Signed)
--- NOTE | 2025-04-01 18:52 | ED.HA ---
HPI - Headache General Chief Complaint: Headache/Migraine Stated Complaint: Headache Time Seen by Provider: 04/01/25 18:24 History of Present Illness HPI Narrative: This 39-year-old female comes in reporting a headache that began yesterday morning upon awakening. She states she does not normally get headaches and reports that this is the worst headache she has ever had in her life. She did fall about a week ago but did not hit her head and had no residual or persistent symptoms. Her headache began yesterday morning and has persisted through to today. She does not report any nausea, vomiting, fevers, or neurologic deficits. She has not had any visual changes. She states that the pain is on the right side of her head. Related Data Home Medications ?Medication ?Instructions ?Recorded ?Confirmed levothyroxine 125 mcg capsule 125 mcg PO QDAY 05/10/22 08/23/23 cholecalciferol (vitamin D3) 125 mcg PO 07/30/23 07/30/23 mcg (5,000 unit) disintegrating tablet omeprazole 20 mg capsule,delayed 20 mg PO DAILY 07/30/23 08/23/23 release Allergies Allergy/AdvReac Type Severity Reaction Status Date / Time ibuprofen Allergy Severe Only One Verified 07/30/23 14:23 Kidney naproxen Allergy Severe hives, SOB Verified 07/30/23 14:23 Penicillins Allergy Intermediate Nausea Verified 07/30/23 14:23 clarithromycin Allergy Mild Rash Verified 07/30/23 14:23 metronidazole Allergy Mild Rash Verified 07/30/23 14:23 aspirin AdvReac Severe Only One Verified 07/30/23 14:23 Kidney ketorolac (From Acular) AdvReac Severe Only One Verified 07/30/23 14:23 Kidney Review of Systems Status of ROS: Reports: 10 or more systems reviewed and unremarkable except as noted in History and below Narrative: Constitutional: No fevers, no weight gain or loss. Eyes: No discharge. No vision changes. HENT: No congestion, no sore throat, no ear pain. Cardiovascular: No chest pain, no palpitations. Respiratory: No shortness of breath, no wheezes, no cough. Gastrointestinal: No abdominal pain, no vomiting, no diarrhea. Genitourinary: No dysuria, no hematuria. Musculoskeletal: Normal range of motion. Skin: No rashes, no pruritis. Neurological: No dizziness, weakness, sensory change, speech change. Endo/Heme/Allergies: No bruising or bleeding. No polydipsia. Pysch: no suicidality, no anxiety, no insomnia. All other systems reviewed and are negative. [facility] Medical History History of vitamin D deficiency ?Z86.39 - Personal history of other endocrine, nutritional and metabolic disease (ICD-10) History of Helicobacter pylori infection (2017) ?Z86.19 - Personal history of other infectious and parasitic diseases (ICD-10) Vaginal after (06/21/21) ?O34.219 - Maternal care for unspecified type scar from previous delivery (ICD-10) Premature delivery ?O60.10X0 - labor with delivery, unspecified trimester, not applicable or unspecified (ICD-10) Back pain (07/03/22) ?M54.9 - Dorsalgia, unspecified (ICD-10) History of severe pre-eclampsia (2018) ?Z87.59 - Personal history of other complications of , childbirth and the puerperium (ICD-10) Surgical History History of dehiscence of wound ?Z87.59 - Personal history of other complications of , childbirth and the puerperium (ICD-10) Status post primary low transverse section (08/24/19) ?Z98.891 - History of uterine scar from previous surgery (ICD-10) History of kidney donation (2015) ?Z90.5 - Acquired absence of kidney (ICD-10) Family History Father Alcohol dependence Coronary artery disease Myocardial infarction Cirrhosis Maternal Grandfather Diabetes Liver cancer Maternal Grandmother Diabetes Social History What is your current living situation?: I presently have a place to live Problems where you live: no known problems In the past 12 months, utilities in danger of being shut off: no In past 12 months, lack of transportation kept you from medical appts, meetings, work, or getting things needed for daily living: no In the past 12 mos, have been you worried that your food would run out before you had money to buy more?: never true In the past 12 mos, the food you bought just didn't last and you didn't have money to buy more?: never true Smoking Status: Never smoker Do you use any of these nicotine containing products: None How often do you have a drink containing alcohol: monthly or less How often do you have six or more drinks on one occasion: Never AUDIT-C Alcohol total score: 1 Non-prescribed substance use: denies use How often does anyone, including family, friends and others, physically hurt you: never How often does anyone, including family, friends and others, insult or talk down to you: never How often does anyone, including family, friends and others, threaten you with harm: never How often does anyone, including family, friends and others, scream or curse at you: never service: No Exam Narrative: Exam Narrative: Constitutional: Well-developed, well-nourished, no acute distress. HEENT: Normocephalic, atraumatic. Neck: Normal range of motion. Nontender. Supple. Heart: Regular. No murmurs. Normal rate. Intact distal pulses. Lungs: Clear to auscultation. No chest discomfort. No wheezes, rhonchi, or rales. Abdomen: Normal bowel sounds. Nontender. No rebound tenderness. Genitalia: Deferred. Back: No midline tenderness. Normal range of motion. Extremities: Normal range of motion. No injury. Skin: Intact. No rash. Warm. No erythema or pallor. Neurologic: No altered sensation. No weakness. Alert and oriented. Psychiatric: No suicidality. No anxiety or depression. No insomnia. Nursing notes and vitals signs are reviewed. Const: Vital Signs, click to edit/add: Vital Signs - 24 hr 04/01/25 18:26 04/01/25 20:33 Temperature 99.1 F Pulse Rate 80 Pulse Rate [Pulse Oximeter] 74 Respiratory Rate 16 16 Blood Pressure 132/80 Blood Pressure [Ri ght Upper Arm] 118/79 Pulse Oximetry 97 98 Oxygen Delivery Me thod Room Air Room Air Course Vital Signs Vital signs: Initial Vital Signs Temperature 99.1 F 04/01/25 18:26 Temperature Source Temporal Artery Scan 04/01/25 18:26 Pulse Rate 74 04/01/25 18:26 Respiratory Rate 16 04/01/25 18:26 Blood Pressure 118/79 04/01/25 18:26 Blood Pressure Mean 92 04/01/25 18:26 Blood Pressure Position Sitting 04/01/25 18:26 Pulse Oximetry 97 04/01/25 18:26 Oxygen Delivery Method Room Air 04/01/25 18:26 Vital Signs Temperature 99.1 F 04/01/25 18:26 Pulse Rate 74 04/01/25 18:26 Respiratory Rate 16 04/01/25 18:26 Blood Pressure 118/79 04/01/25 18:26 Pulse Oximetry 97 04/01/25 18:26 Oxygen Delivery Method Room Air 04/01/25 18:26 Temperature 99.1 F 04/01/25 18:26 Pulse Rate 80 04/01/25 20:33 Respiratory Rate 16 04/01/25 20:33 Blood Pressure 132/80 04/01/25 20:33 Pulse Oximetry 98 04/01/25 20:33 Oxygen Delivery Method Room Air 04/01/25 20:33 Medications Administered Medications: Discontinued Medications Generic Name Dose Route Start Last Admin Trade Name Yunierq PRN Reason Stop Dose Admin Diphenhydramine HCl 50 mg 04/01/25 18:50 04/01/25 19:13 Diphenhydramine 50 Mg/Ml Inj IVP 04/01/25 18:51 50 mg ONCE ONE Administration Ketamine HCl 20 mg/ Sodium 100.2 mls @ 300.6 mls/hr 04/01/25 19:39 04/01/25 20:32 Chloride IVPB 04/01/25 19:40 Infused ONCE ONE Infusion Ketorolac Tromethamine 15 mg 04/01/25 18:50 04/01/25 19:13 Ketorolac 30 Mg/Ml Inj IVP 04/01/25 18:51 15 mg ONCE ONE Administration Ondansetron HCl 4 mg 04/01/25 18:50 04/01/25 19:14 Ondansetron 2 Mg/Ml Inj IVP 04/01/25 18:51 4 mg ONCE ONE Administration MDM - Headache MDM Narrative Medical decision making narrative: This patient comes in reporting her worst headache. A CT scan of her head is obtained and returns with normal findings. Her exam is also normal with no sign of any neurologic deficits. An IV was established where she received Toradol, Benadryl, and Zofran. This brought her headache down to a 7/10 in severity according to her report. She then received a 20 mg infusion of ketamine which brought further relief to her headache. She is okay to be discharged home. Imaging Data CT scan - head: Radiologist's impression: 1. No acute intracranial abnormality. 2. Normal brain parenchymal morphology Discharge Plan Discharge Clinical Impression: Migraine Patient Disposition: Home, Self-Care Condition: Improved Additional Instructions: Use [id number] medicines as needed and directed. Follow up with MD return if worsening. Prescriptions: No Action omeprazole 20 mg capsule,delayed release(DR/EC) 20 mg PO DAILY cholecalciferol (vitamin D3) 125 mcg (5,000 unit) tablet,disintegrating PO levothyroxine 125 mcg capsule 125 mcg PO QDAY Follow Up/Referrals: Eleanor Tolentino MD [Primary Care Provider, Family Practice] Stand Alone Forms: Coffee and Power Info Instructions
[2025-04-01] MEDS: KETOROLAC 30 MG/ML inj 15 MG IVP (19:13)
[2025-04-01] MEDS: diphenhydrAMINE 50 MG/ML inj IVP (19:13)
[2025-04-01] MEDS: ONDANSETRON 2 MG/ML inj 4 MG IVP (19:14)
[2025-04-01] MEDS: KETAMINE HCL 20 MG in 0.9 % SODIUM CHLORIDE 100 ml 100 ML 300.6 MG IVPB (20:06)
[2025-04-01 20:33] VITALS: BP 132/80; PULSE 80; RESP 16; O2SAT 98
== END 2025-04-01 20:47 | disposition home or self-care (01) ==
PROVIDERS: Emergency Provider Emergency Medicine Emergency Medical Services; PCP Family Medicine
DX: G43.909 Migraine, unspecified, not intractable, without status migrainosus (principal)
CPT/HCPCS: 70450; 96365; 96375; 99284; J1200; J1885; J2405; J3490

== ENCOUNTER 2025-05-11 08:45 | Outpatient (RCR) | payer BC, SELFPAY | END 2025-07-08 14:43 | disposition home or self-care (01) | PROVIDERS: PCP Family Medicine; Visit Provider Orthopaedic Surgery | DX: M79.645 Pain in left finger(s) (principal); Q68.6 Discoid meniscus; Z51.89 Encounter for other specified aftercare | CPT/HCPCS: 97035; 97110; 97140; 97161; 97165; 97535; X5282 ==